=== PATIENT | female | born 1990 | race African-American/Black ===

== ENCOUNTER 2021-11-06 08:08 | Inpatient (IN) | payer OTHER ==
[2021-11-06 09:04] VITALS: BMI 26.5
[2021-11-06] MEDS ORDERED: BENZOCAINE 20% 57 GM BOTTLE TP PRN (09:39)
[2021-11-06] MEDS ORDERED: ACETAMINOPHEN 325 MG TABLET (FP) PO PRN (09:39)
[2021-11-06] MEDS ORDERED: BENZOCAINE 28 GM HEMORRHOIDAL OINTMENT TP PRN (09:39)
[2021-11-06] MEDS ORDERED: BISACODYL 10 MG SUPP.RECT RC PRN (09:39)
[2021-11-06] MEDS ORDERED: oxyCODONE HCL 5 MG TABLET PO PRN (09:39)
[2021-11-06] MEDS ORDERED: METHYLERGONOVINE MALEATE 0.2 MG/1 ML AMP IM PRN (09:39)
[2021-11-06] MEDS ORDERED: WITCH HAZEL 50% (TUCKS) 40 PAD/JAR PAD TP PRN (09:39)
[2021-11-06] MEDS ORDERED: OXYTOCIN 20 UNITS in 0.9% NS 20 UNIT/1,000 ML INFUS.BAG IV SCH (09:45)
[2021-11-06] MEDS ORDERED: OXYTOCIN 20 UNITS in 0.9% NS 20 UNIT/1,000 ML INFUS.BAG IV ONE (10:00)
[2021-11-06] MEDS ORDERED: ERYTHROMYCIN 0.5% OPHTHALMIC OINTMENT 3.5 GM TUBE OU ONE (10:40)
[2021-11-06] MEDS ORDERED: PHYTONADIONE NEONATAL 1 MG/0.5 ML AMP IM ONE (10:40)
[2021-11-06 14:41] LABS: BASO % 0.3 % (0-2.0); HEMATOCRIT 35.6 % (32.4-45.2); HEMOGLOBIN 11.6 GM/dL (10.7-15.3); LYMPH % 6.7 % (8-40); MCH 29.9 pg (25.7-33.7); MCHC 32.7 g/dl (32.0-36.0); MEAN CELL VOLUME 91.4 fl (80-96); MEAN PLT VOLUME 9.5 fl (7.5-11.1); MONO % 8.4 % (3.8-10.2); NEUT % 84.6 % (42.8-82.8); PLATELET COUNT 221 10^3/uL (134-434); RBC 3.89 M/mm3 (3.60-5.2); RDW 14.8 % (11.6-15.6)
[2021-11-06 14:49] LABS: INR 1.06 (0.83-1.09); PROTHROMBIN TIME (PATIENT) 12.2 SEC (9.7-13.0)
[2021-11-06 14:52] LABS: ACTIVATED PTT 26.7 SECONDS (25.2-36.5)
[2021-11-06 15:04] LABS: CALCIUM 9.1 mg/dL (8.5-10.1)
[2021-11-06 15:05] LABS: BLOOD UREA NITROGEN 5.6 mg/dL (7-18)
[2021-11-06 15:09] LABS: CREATININE 0.6 mg/dL (0.55-1.3)
[2021-11-06 15:54] LABS: HIV INTERPRETATION NEGATIVE (NEGATIVE)
[2021-11-06] MEDS: IBUPROFEN 600 MG TABLET (FP) PO PRN (21:53)
[2021-11-07 08:02] LABS: BASO % 0.7 % (0-2.0); EOS % 1.5 % (0-4.5); HEMATOCRIT 32.5 % (32.4-45.2); HEMOGLOBIN 10.8 GM/dL (10.7-15.3); MCH 30.3 pg (25.7-33.7); MCHC 33.3 g/dl (32.0-36.0); MEAN CELL VOLUME 91.1 fl (80-96); MEAN PLT VOLUME 9.5 fl (7.5-11.1); MONO % 8.7 % (3.8-10.2); NEUT % 68.1 % (42.8-82.8); PLATELET COUNT 207 10^3/uL (134-434); RBC 3.57 M/mm3 (3.60-5.2); RDW 14.8 % (11.6-15.6); WHITE BLOOD COUNT 12.7 K/mm3 (4.0-10.0)
[2021-11-07] MEDS: IBUPROFEN 600 MG TABLET (FP) PO PRN (17:30)
[2021-11-07] MEDS ORDERED: SENNOSIDES/DOCUSATE COMBO (SENNA PLUS) TABLET (UD) PO PRN (22:00)
[2021-11-07 22:21] VITALS: RESP 16
[2021-11-08] MEDS: IBUPROFEN 600 MG TABLET (FP) PO PRN (02:51)
[2021-11-08 11:46] VITALS: BP 116/71; PULSE 72; TEMP 97.9
== END 2021-11-08 13:00 | disposition home or self-care (01) | DRG 560 ==
LOC: JLDR 08:08 → J3W 10:40
PROVIDERS: ADMIT Specialist; ATTEND Specialist
PROC: 10E0XZZ Delivery of Products of Conception, External Approach (ICD-10-PCS; principal; 2021-11-06)
PROC: 0W8NXZZ Division of Female Perineum, External Approach (ICD-10-PCS; 2021-11-06)
DX: O80 Encounter for full-term uncomplicated delivery (principal); Z3A.39 39 weeks gestation of pregnancy; Z37.0 Single live birth
CPT/HCPCS: 36415; 59025; 59409; 80048; 81003; 85025; 85610; 85730; 86780; 86850; 86900; 86901; 87389; C9803-CS; U0003; U0005

== ENCOUNTER 2023-10-07 14:28 | Emergency (ER) | payer OTHER ==
[2023-10-07 14:37] VITALS: BP 125/76; PULSE 68; RESP 18; TEMP 98.3; BMI 23.9
[2023-10-07] MEDS ORDERED: LIDOCAINE VISCOUS 2% ORAL/TOP 15 ML UNIT-DOSE CUP ONE (15:26)
[2023-10-07] MEDS ORDERED: SIMETHICONE 80 MG TAB.CHEW (FP) ONE (15:27)
[2023-10-07] MEDS ORDERED: MAG HYDROX/AL HYDROX/SIMETH 30 ML UNIT-DOSE CUP ONE (15:27)
[2023-10-07] MEDS: MAG HYDROX/AL HYDROX/SIMETH 30 ML UNIT-DOSE CUP PO ONE (16:06)
[2023-10-07] MEDS: LIDOCAINE VISCOUS 2% ORAL/TOP 15 ML UNIT-DOSE CUP MM ONE (16:07)
[2023-10-07] MEDS: SIMETHICONE 40 MG/0.6 ML BOTTLE PO ONE (16:28)
[2023-10-07 16:41] LABS: EPI CELLS 26 /uL (0-25.1); HYALINE CASTS 0 /uL (0-3.1); PH,URINE 6.5 (5.0-8.0); URINE APPEARANCE CLEAR; URINE BACTERIA 669 /uL (0-1359); URINE BILIRUBIN NEGATIVE (NEGATIVE); URINE COLOR YELLOW; URINE GLUCOSE (UA) NEGATIVE (NEGATIVE); URINE KETONE NEGATIVE (NEGATIVE); URINE LEUK ESTERASE TRACE (NEGATIVE); URINE NITRITE NEGATIVE (NEGATIVE); URINE PROTEIN TRACE (NEGATIVE); URINE RBC 29 /uL (0-23.9); URINE WBC 17 /uL (0-25.8)
== END 2023-10-07 16:29 | disposition home or self-care (01) ==
LOC: JER 14:28
DX: R14.0 Abdominal distension (gaseous) (principal); R10.13 Epigastric pain
CPT/HCPCS: 81003; 87086; 93005; 93010; 99283-25